=== PATIENT | female | born 1995 | race Caucasian/White ===

== ENCOUNTER 2025-01-24 15:39 | Outpatient (CLI) | payer OTHER ==
[~2025-01-24] VITALS: Ht 172.7 cm; Wt 77.3 kg
[2025-01-24 15:50] VITALS: BP 102/71; O2SAT 96
[2025-01-24 16:20] VITALS: BP 110/80; O2SAT 96
== END 2025-01-24 16:20 | disposition home or self-care (01) ==
LOC: M INFU 15:39
PROVIDERS: ATTEND Internal Medicine
DX: E83.119 Hemochromatosis, unspecified (principal); D45 Polycythemia vera

== ENCOUNTER 2025-01-31 15:19 | Outpatient (CLI) | payer OTHER ==
[2025-01-31 16:00] VITALS: BP 111/74; O2SAT 98
[2025-01-31 16:35] VITALS: BP_SYST 111; BP_SYST 130; BP_DIAS 73; BP_DIAS 74; O2SAT 99
== END 2025-01-31 16:35 ==
LOC: M INFU 15:19 → EDUNIT# 16:00 → M INFU 16:35
PROVIDERS: ATTEND Internal Medicine
DX: E83.119 Hemochromatosis, unspecified (principal); D45 Polycythemia vera

== ENCOUNTER → 2025-02-19 | Outpatient (CLI) | payer OTHER ==
[~2025-02-19] MED LIST: CELE10TA PO; CETI-24; MULTTAB20 PO
== END ==
LOC: M RAD 08:07
PROVIDERS: ATTEND Student in an Organized Health Care Education/Training Program
DX: E83.119 Hemochromatosis, unspecified (principal)